=== PATIENT | male | born 1995 | race Asian ===

== ENCOUNTER 2021-12-19 17:28 | Emergency (ER) | payer MEDICAID ==
[~2021-12-19] VITALS: Ht 188 cm; Wt 74.4 kg
[2021-12-19 19:12] LABS: BILIRUBIN,URINE SMALL (NEGATIVE); COLOR,URINE YELLOW (YELLOW); LEUKOCYTE ESTERASE ,URINE NEGATIVE (NEGATIVE); NITRITE, URINE NEGATIVE (NEGATIVE); PROTEIN,URINE TRACE mg/dl (NEGATIVE); UGLUCOSE NEGATIVE (NEGATIVE); UROBILINOGEN,URINE 0.2 EU/dL (0.2)
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
[2021-12-19 19:34] LABS: ALANINE AMINOTRANSFERASE 48 U/L (12-78); ALBUMIN 3.9 g/dL (3.4-5.0); ALCOHOL, BLOOD < 3 mg/dL (0-0); ALKALINE PHOSPHATASE 87 U/L (46-116); ASPARTATE AMINOTRANSFERASE 63 U/L (15-37); BILIRUBIN,DIRECT 0.1 mg/dL (0.0-0.2); BILIRUBIN,TOTAL 0.3 mg/dL (0.2-1.0); CALCIUM, SERUM 8.6 mg/dL (8.5-10.1); CARBON DIOXIDE 31 mmol/L (21-32); CHLORIDE 101 mmol/L (98-107); CREATININE 0.8 mg/dL (0.6-1.3); GLUCOSE 71 mg/dL (74-106); POTASSIUM 3.7 mmol/L (3.5-5.1); SODIUM SERUM 138 mmol/L (136-145); TOTAL PROTEIN, SERUM 6.9 g/dL (6.4-8.2); UREA NITROGEN, BLOOD 20 mg/dL (7-18)
[2021-12-19 19:59] LABS: BASOPHILS % (AUTO) 0.7 % (0.0-2.0); EOSINOPHILS % (AUTO) 3.6 % (0.0-6.0); HEMATOCRIT 44 % (39-51); HEMOGLOBIN 14.4 g/dL (13.5-17.5); LYMPHOCYTES # (AUTO) 1.7 K/uL (0.8-4.8); LYMPHOCYTES % (AUTO) 31.7 % (20.0-44.0); MEAN CORPUSCULAR HGB CONC 33 g/dl (31.0-36.0); MEAN CORPUSCULAR VOLUME 92 fL (80-96); MONOCYTES # (AUTO) 0.4 K/uL (0.1-1.30); PLATELET COUNT (AUTO) 320 K/uL (150-450); RED BLOOD CELL COUNT(AUTO) 4.75 MIL/uL (4.5-6.0); WHITE BLOOD COUNT (AUTO) 5.4 K/uL (4.3-11.0)
--- NOTE | 2021-12-19 20:45 | NUR ---
FACESHEET AND CLINICALS FAXED TO [facility].
[2021-12-20 07:42] VITALS: BP 129/68
--- NOTE | 2021-12-20 07:50 | NUR ---
BREAKFAST TRAY PROVIDED.
--- NOTE | 2021-12-20 08:40 | NUR ---
SUYAPA followed up and called [facility] [phone] and spoke to Edson from intake regarding possiblE admission. Edson asked SUYAPA to refax clinicals. SUYAPA faxed clinicals to Edson at FAX: [phone].
--- NOTE | 2021-12-20 09:50 | NUR ---
ACCEPTED AT [facility] UNDER DR MASTERSON. FOR REPORT, CALL NURSING [place] CLERK. [facility] WILL ARRANGE TRANSPORT
--- NOTE | 2021-12-20 10:14 | NUR ---
[facility] AT BEDSIDE.
== END 2021-12-20 10:15 ==
LOC: EDBD 17:30 → ER 17:30
DX: F29 Unspecified psychosis not due to a substance or known physiological condition (principal); F15.10 Other stimulant abuse, uncomplicated; Z20.822 Contact with and (suspected) exposure to COVID-19; Z72.0 Tobacco use; Z59.00 Homelessness unspecified
CPT/HCPCS: 36415; 80048; 80076; 80143; 80307; 80320; 81003; 85025; 87426; 99285; C9803; G0480

== ENCOUNTER 2021-12-28 19:02 | Emergency (ER) | payer MEDICAID ==
[~2021-12-28] VITALS: Ht 188 cm; Wt 74.4 kg
--- NOTE | 2021-12-28 21:00 | NUR ---
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 DENIES ANY DISCOMFORT. PATIENT A/O X 4, RR EVEN AND UNLABORED, NO SOB NOTED. PATIENT NOTED WITH STEADY GAIT. PATIENT SKIN INTACT. NO ACUTE DISTRESS NOTED. PATIENT VSS. WILL CONTINUE TO MONITOR.
[2021-12-28 21:39] LABS: BASOPHILS % (AUTO) 0.5 % (0.0-2.0); EOSINOPHILS % (AUTO) 3.2 % (0.0-6.0); HEMATOCRIT 41 % (39-51); HEMOGLOBIN 13.4 g/dL (13.5-17.5); LYMPHOCYTES # (AUTO) 2.4 K/uL (0.8-4.8); LYMPHOCYTES % (AUTO) 34.6 % (20.0-44.0); MEAN CORPUSCULAR HGB CONC 32 g/dl (31.0-36.0); MEAN CORPUSCULAR VOLUME 92 fL (80-96); MONOCYTES # (AUTO) 0.7 K/uL (0.1-1.30); MONOCYTES % (AUTO) 10.1 % (2.0-12.0); NEUTROPHILS # (AUTO) 3.6 K/uL (1.8-8.9); NEUTROPHILS % (AUTO) 51.6 % (43.0-81.0); PLATELET COUNT (AUTO) 302 K/uL (150-450); WHITE BLOOD COUNT (AUTO) 6.9 K/uL (4.3-11.0)
--- NOTE | 2021-12-28 21:40 | NUR ---
COVID SWAB COLLECTED SENT TO LAB
--- NOTE | 2021-12-28 21:55 | NUR ---
CALLED LAB TO F/U WITH CHEMISTRY & TOXICOLOGY
[2021-12-28 23:05] LABS: CARBON DIOXIDE 26 mmol/L (21-32); CHLORIDE 100 mmol/L (98-107); CREATININE 0.8 mg/dL (0.6-1.3); GLUCOSE 83 mg/dL (74-106); SODIUM SERUM 137 mmol/L (136-145); UREA NITROGEN, BLOOD 25 mg/dL (7-18)
[2021-12-29 05:26] LABS: BILIRUBIN,URINE NEGATIVE (NEGATIVE); COLOR,URINE YELLOW (YELLOW); LEUKOCYTE ESTERASE ,URINE NEGATIVE (NEGATIVE); NITRITE, URINE NEGATIVE (NEGATIVE); PROTEIN,URINE TRACE mg/dl (NEGATIVE); UGLUCOSE NEGATIVE (NEGATIVE); UROBILINOGEN,URINE 0.2 EU/dL (0.2)
[2021-12-29 05:39] LABS: BACTERIA,URINE None seen /HPF (None Seen); SQUAMOUS EPITHELIAL CELL,UR 0-2 /HPF (None Seen); WBC,URINE 0-2 /HPF (0-3)
[2021-12-29 10:40] LABS: CALCIUM, SERUM 9.1 mg/dL (8.5-10.1)
[2021-12-29 11:57] LABS: ALANINE AMINOTRANSFERASE 59 U/L (12-78); ALBUMIN 3.8 g/dL (3.4-5.0); ASPARTATE AMINOTRANSFERASE 66 U/L (15-37); BILIRUBIN,DIRECT 0.1 mg/dL (0.0-0.2); BILIRUBIN,TOTAL 0.3 mg/dL (0.2-1.0); TOTAL PROTEIN, SERUM 6.8 g/dL (6.4-8.2)
--- NOTE | 2021-12-29 12:21 | NUR ---
FAXED FACE SHEET AND CLINICALS TO [facility]
--- NOTE | 2021-12-29 13:12 | NUR ---
FOLLOWED UP WITH [facility] INTAKE FOR PLACEMENT. WILL WAIT FOR CALL BACK
[2021-12-29 13:58] LABS: ALKALINE PHOSPHATASE 95 U/L (46-116)
[2021-12-29 15:28] LABS: ACETAMINOPHEN < 0 ug/ml (10-30); ALCOHOL, BLOOD < 3 mg/dL (0-0)
--- NOTE | 2021-12-29 18:13 | NUR ---
FOLLOWED UP WITH [facility] SPOKE WITH ART BUT STILL WAITING FOR CHARGE NURSE
--- NOTE | 2021-12-29 18:42 | NUR ---
ACCEPTED AT [facility]. GIVE REPORT TO NURSING COMPOSITION TEACHER TANIA. # FOR REPORT [phone] EXT [phone]
--- NOTE | 2021-12-29 18:59 | NUR ---
TRIED GIVING REPORT TO TANIA OF [facility]. PER TANIA THERE IS NO ADMITTING DOCTOR YET, WILL CALL ER ONCE THERE IS AN ADMITTING DOCTOR FOR ADMISSION INFO
--- NOTE | 2021-12-29 19:03 | NUR ---
[facility]TA[facility] CALLED. ADMITTING MD. DR VILLASEÑOR.
--- NOTE | 2021-12-29 19:05 | NUR ---
ARRANGED BLS TRANSPORT WITH [facility] TO [facility]. SPOKE WITH VALERI. ETA IS 60 MIN
--- NOTE | 2021-12-29 19:47 | NUR ---
REPORT GIVEN TO IJ OF [facility] FOR [facility]
[2021-12-29 20:00] VITALS: BP 125/67
--- NOTE | 2021-12-29 20:30 | NUR ---
COREY NO LONGER WOULD LIKE TO WAIT FOR PROCESSOR GRAIN. - SI. PT WILL LIKE TO LEAVE AT THIS TIME.
--- NOTE | 2021-12-29 20:31 | NUR ---
Patient discharged to home in stable condition. Written and verbal after care instructions given. Patient verbalizes understanding of instruction.
== END 2021-12-29 20:31 | disposition home or self-care (01) ==
LOC: ER 19:05
DX: R45.851 Suicidal ideations (principal); F29 Unspecified psychosis not due to a substance or known physiological condition; Z20.822 Contact with and (suspected) exposure to COVID-19; Z53.20 Procedure and treatment not carried out because of patient's decision for unspecified reasons; Z59.00 Homelessness unspecified; F19.10 Other psychoactive substance abuse, uncomplicated
CPT/HCPCS: 36415; 80048; 80076; 80143; 80307; 80320; 81001; 85025; 87426; 99285; C9803; G0480